=== PATIENT | male | born 1950 | race Two or more races ===

== ENCOUNTER 2024-01-09 09:58 | Emergency (ER) | payer MEDICARE, MEDICAID, SELFPAY ==
[2024-01-09 10:08] VITALS: BP 167/93; PULSE 68; RESP 16; TEMP 36.8; O2SAT 98; BMI 25.5
== END 2024-01-09 13:12 | disposition left against medical advice (07) ==
PROVIDERS: Emergency Provider Emergency Medicine Emergency Medical Services
DX: R51.9 Headache, unspecified (principal); Z91.81 History of falling; Z53.21 Procedure and treatment not carried out due to patient leaving prior to being seen by health care provider
CPT/HCPCS: 99281

== ENCOUNTER 2024-01-13 09:54 | Outpatient (AMB) | payer MEDICARE, MEDICAID, SELFPAY ==
[2024-01-13 10:11] VITALS: BP 150/90; PULSE 66; O2SAT 97
--- NOTE | 2024-01-13 10:11 | AM.OFFWIN_ITS ---
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 His PMhx significant for HTN and mixed hyperlipidemia. He just moved here from [place] 6 months ago and he is waiting to establish care with new PCP next year. [facility] Medical History (Updated 01/13/24 @ 10:20 by Marleni De Jesus NP) Hyperlipidemia Hypertension Review of Systems Const All systems reviewed & are unremarkable except as noted in HPI and below Physical Exam Vital Signs: Last Vital Signs Pulse 66 01/13/24 10:11 BP 150/90 H 01/13/24 10:11 Pulse Ox 97 01/13/24 10:11 Const General: cooperative and no acute distress Nutritional Appearance: thin Orientation/consciousness: patient oriented x3 Resp Effort & Inspection: normal respiratory effort Auscultation: clear to auscultation bilaterally, no crackles, no rales, no rhonchi and no wheezes Cardio Heart sounds: S1 normal heart sound present and S2 normal heart sound present Neuro General: patient oriented x3, gait normal and moves all extremities Assessment & Plan Assessment & Plan (1) Hypertension: Code(s): I10 - Essential (primary) hypertension Qualifiers: Hypertension type: primary hypertension Qualified Code(s): I10 - Essential (primary) hypertension Plan: Refilled his medications for 3 months. (2) Hyperlipidemia: Code(s): E78.5 - Hyperlipidemia, unspecified Qualifiers: Hyperlipidemia type: mixed hyperlipidemia Qualified Code(s): E78.2 - Mixed hyperlipidemia Plan: Refilled his medications for 3 months. Medications: New amlodipine 5 mg PO DAILY 90 tabs 0RF I10 - Essential (primary) hypertension lisinopril 40 mg PO DAILY 90 tabs 0RF I10 - Essential (primary) hypertension metoprolol succinate ER 100 mg PO BID 90 tabs 0RF I10 - Essential (primary) hypertension simvastatin 20 mg PO DAILY 90 tabs 0RF E78.2 - Mixed hyperlipidemia hydrochlorothiazide 25 mg PO DAILY 90 tabs 0RF I10 - Essential (primary) hyp ertension Coding Level of Care Code New Pt Level 3 (05671) Diagnoses Primary hypertension I10 Hypertension type: primary hypertension Mixed hyperlipidemia E78.2 Hyperlipidemia type: mixed hyperlipidemia Time Spent (min) 15
== END 2024-01-13 10:46 | disposition home or self-care (01) ==
PROVIDERS: Visit Provider Nurse Practitioner Family
DX: I10 Essential (primary) hypertension (principal); E78.2 Mixed hyperlipidemia

== ENCOUNTER → 2024-01-13 09:54 | Outpatient (BNVA) | payer MEDICARE, MEDICAID, SELFPAY | DX: I10 Essential (primary) hypertension (principal); E78.2 Mixed hyperlipidemia | CPT/HCPCS: 99202 ==

== ENCOUNTER 2024-03-26 07:56 | Outpatient (AMB) | payer OTHER, SELFPAY ==
--- NOTE | 2024-03-26 08:06 | MHC.PC.OV ---
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 Accompanied by: Self / Same As Patient Allergies No Known Allergies Allergy (Mild, Verified 03/26/24 08:24) N/A Medication List - Last Reconciled 03/26/24 by Tonie Ivey PA-C amlodipine 5 mg PO DAILY hydrochlorothiazide 25 mg PO DAILY lisinopril 40 mg PO DAILY metoprolol succinate ER 100 mg PO BID simvastatin 20 mg PO DAILY Tobacco use date assessed: 03/26/24 Fall risk assessment: No Falls in past year Last assessed Fall Risk: 03/26/24 Dental Screening Dental Screen Date: 03/26/24 Did you have a dental visit in the last 12 months?: Yes Did you have a dental problem in the last 6 months where you did not have access to dental care?: No Was dental information given to patient?: Patient has dentist HPI new patient HPI Details 74-year-old male with past medical history of hypertension hyperlipidemia coming to the office for the 1st time.? In review of the notes, patient was seen in walk-in clinic 12/2023 4 medication refills. Patient tells us today he was last seen by PCP in [place] over 8 months ago. Previously he has been seen in [facility] and [facility]. In he had a colonoscopy done about [address] Fuentes and is due for colonoscopy. He has difficulty sleeping on wake up 3-4 times per night to both go to the bathroom and simply waking up. He has never had a sleep study completed. Blood pressure at home has been elevated and he does routinely take his blood pressure. He denies any symptoms at this time. [facility] Medical History (Updated 03/26/24 @ 08:50 by Tonie Ivey PA-C) Hyperlipidemia Hypertension Surgical History (Updated 03/26/24 @ 08:39 by Tonie Ivey PA-C) History of coronary artery stent placement History of stent insertion of renal artery History of knee surgery Social History Housing: House Patient Tobacco Use Status: Current everyday Tobacco user Tobacco use type: Cigarette Cigarette Packs Per Day: 1 e-Cigarette/Vaping Use: Never Used Second Hand Smoke Exposure: No service: No Current occupational status: unemployed Cognitive needs: Yes Hearing needs: No Vision needs: No Questionnaire PHQ-9 Over the last 2 weeks, how often have you been bothered by any of the following problems? 1. Little interest or pleasure in doing things: not at all 2. Feeling down, depressed, or hopeless: not at all 3. Trouble falling or staying asleep, or sleeping too much: not at all 4. Feeling tired or having little energy: not at all 5. Poor appetite or overeating: not at all 6. Feeling bad about yourself - or that you are a failure or have let yourself or your family down: not at all 7. Trouble concentrating on things, such as reading the newspaper or watching television: not at all 8. Moving or speaking so slowly that other people could have noticed. Or the opposite - being so fidgety or restless that you have been moving around a lot more than usual: not at all 9. Thoughts that you would be better off or of hurting yourself in some way: not at all Total score: 0 Depression Screening Interpretation: Negative Depression Screening Done: Yes Source: Developed by Drs. Des Crockett, Ninoska King, Bola River and colleagues, with an educational alice from [employer]. Thrive Questionnaire Date Thrive assessed: 03/26/24 I am a: Patient What is your living situation today?: I have a steady place to live Within the past 12 months, did the food you bought not last and you didn't have the money to get more?: Never true Within the past 12 months, did you worry whether your food would run out before you got money to buy more?: Never true Do you have trouble paying for medicines?: No Do you have trouble getting transportation to medical appointments?: No Do you have trouble paying your heating and electricity bill?: No Do you have trouble taking care of your child, family member or friend?: No Do you have trouble with day-to-day activities such as bathing, preparing meals, shopping, managing finances, etc.?: No Are you currently unemployed and looking for a job?: No Are you interested in more education?: No Please select the resources that you would like help with: None Currently or been in a relationship where the following occur: No concerns reported THRIVE Score: 0 AUDIT C Alcohol Use Questionnaire (AUDIT-C) 1. How often do you have a drink containing alcohol?: Never Total Score: 0 MORAIMA-7 AMB Questionnaire MORAIMA-7 Date MORAIMA - 7 assessed: 03/26/24 Feeling nervous, anxious, or on edge: 0 = Not at all Not being able to stop or control worryin = Not at all Worrying too much about different things: 0 = Not at all Trouble relaxin = Not at all Being so restless that it is hard to sit still: 0 = Not at all Becoming easily annoyed or irritable: 0 = Not at all Feeling afraid as if something awful might happen: 0 = Not at all Total MORAIMA-7 score (0-4 normal; 5-9 mild; 10-14 moderate; 15-21 severe): 0 Source: Developed by Drs. Des Crockett, Ninoska King, Bola River and colleagues, with an educational alice from [employer]. Review of Systems Const Denies body aches, Denies chills, Denies fever(s), Denies headache(s) and Denies poor appetite Eyes Reports no additional complaints ENT Denies dysphagia, Denies dizziness, Denies headache(s) and Denies odynophagia Card Denies chest pain, Denies syncope, Denies edema, Denies irregular heart rhythm, Denies lightheadedness and Denies dyspnea Resp Denies cough and Denies dyspnea GI Denies abdominal pain, Denies constipation, Denies dysphagia, Denies diarrhea, Denies nausea, Denies odynophagia and Denies vomiting Reports no additional complaints Musc Reports no additional complaints, Denies abnormal gait and Reports back pain Skin/Breast Reports system reviewed and no additional complaints, except as documented Neuro Denies abnormal gait, Denies dizziness, Denies syncope and Denies headache(s) Psych Reports no additional complaints Physical exam (Primary Care) Vital Signs: Last Vital Signs Pulse 63 03/26/24 08:09 BP 170/100 H 03/26/24 08:09 Pulse Ox 98 03/26/24 08:09 Oxygen Delivery Method Room Air 03/26/24 08:09 BMI result Body Mass Index 26.3 Tobacco/Smoking Status: Tobacco use Status Tobacco use date assessed 03/26/24 03/26/24 08:15 Patient Tobacco Use Status Current everyday Tobacco 03/26/24 08:15 Tobacco use type Cigarette 03/26/24 08:15 e-Cigarette/Vaping Use Never Used 03/26/24 08:15 Are you ready to quit: No Tobacco cessation counseling provided: Yes Items discussed: Nicotine replacement Relapse Prevention: discussed dietary, exercise and/or lifestyle changes CPT code: Less than 3 minutes PHQ-9: PHQ-9 Score PHQ-9: Total score 0 03/26/24 08:27 Depression Screening Interpretation: Negative Thrive Assessment: Date of Thrive Assessment Date Thrive assessed 03/26/24 03/26/24 08:09 Currently or been in a relationship where the following occur: No concerns reported Const General: cooperative, healthy appearing, comfortable and no acute distress Orientation/consciousness: patient oriented x3 HENMT Head: Yes normocephalic Ears: hearing grossly normal bilaterally General nose exam: Normal external nose present Eyes General: appearance normal, both eyes and all related structures Conjunctivae: conjunctivae normal Neck Neck: Yes full ROM and Yes no lymphadenopathy Resp Effort & Inspection: normal respiratory effort Auscultation: clear to auscultation bilaterally, no crackles, no rales, no rhonchi and no wheezes Cardio Rate: regular rate Rhythm: regular rhythm Skin General skin exam: no rashes or lesions noted Neuro General: patient oriented x3 Gait exam (Neuro): Normal gait present Extrem General: Yes normal to inspection, Yes full ROM and No edema Psych Affect: normal affect Attitude: cooperative Insight: Good insight present (Psych) Judgement: Good judgement present (Psych) Coding Level of Care Code New Pt Level 4 (78584) Diagnoses Mixed hyperlipidemia E78.2 Hyperlipidemia type: mixed hyperlipidemia Tobacco abuse Z72.0 Degenerative disc disease, lumbar M51.369 Decreased vision H54.7 Hypersomnolence G47.10 Coronary artery disease I25.10 Uncontrolled hypertension I10 Assessment & Plan Assessment & Plan (1) Hyperlipidemia: Code(s): E78.5 - Hyperlipidemia, unspecified Category: Medical Qualifiers: Hyperlipidemia type: mixed hyperlipidemia Qualified Code(s): E78.2 - Mixed hyperlipidemia Plan: Avoid foods that are high in cholesterol such as red meat, fried foods, eggs and baked goods. Triglyceride goal of less than 150 and LDL goal of less than 70. Continue on simvastatin (2) Tobacco abuse: Code(s): Z72.0 - Tobacco use Category: Medical Plan: Smoking cigarettes and the use of tobacco can be harmful. We discussed the importance of stopping and options to aid in smoking cessation. Patient having about a reported 60 pack-year history. Strongly recommending the lung cancer screening program which was declined today. Discussed with patient the risks and benefits of this procedure and patient continues to decline. (3) Degenerative disc disease, lumbar: Code(s): M51.369 - Other intervertebral disc degeneration, lumbar region without mention of lumbar back pain or lower extremity pain Category: Medical Plan: Patient states he has a history of degenerative disc disease in the lumbar spine diagnosed with arthritis. Continues to have low back pain and would further evaluation. Lumbar spine x-ray ordered. (4) Decreased vision: Code(s): H54.7 - Unspecified visual loss Category: Medical Plan: Patient complaining of worsening vision would like evaluation from an eye doctor. Referral placed to optometry. (5) Hypersomnolence: Code(s): G47.10 - Hypersomnia, unspecified Category: Medical Plan: Patient complaining of excessive tiredness due to lack of sleep. Ordered for home sleep study for further evaluation (6) Coronary artery disease: Code(s): I25.10 - Atherosclerotic heart disease of [place] coronary artery without angina pectoris Category: Medical Plan: Advised good control of blood pressures, blood sugar and cholesterol. Ordered for updated blood work we will continue to work on the blood pressure management (7) Uncontrolled hypertension: Code(s): I10 - Essential (primary) hypertension Category: Medical Plan: Blood pressure elevated today 170/100 despite being on 4 blood pressure medications. Continue on current blood pressure medication. Avoid salt intake and encourage healthy diet and regular exercise. Blood pressure currently elevated on amlodipine 5 mg, hydrochlorothiazide 25 mg, lisinopril 40 mg, metoprolol 100 mg b.i.d. we will plan to increase amlodipine to 10 mg at this time and follow up in 6 weeks. Also scheduled for the patient to have a 2 week follow up with the nurse navigators for blood pressure education. Ordered for renal Doppler ultrasound for further evaluation of the kidneys and can consider referral to Nephrology Plan This note was constructed using voice recognition software. While every effort has been made to ensure accuracy and advanced analytics associate, still areas may have been included sometimes these areas may affect the content or meeting of the given symptoms. Total time spent caring for the patient today was 30 minutes. This includes time spent before the visit reviewing the chart, time spent during the visit, and time spent after the visit and documentation. Orders: Orders Comprehensive Met. Panel Today Z00.00 - Encounter for general adult medical examination without abnormal findings Complete Blood Count Auto Diff Today Z00.00 - Encounter for general adult medical examination without abnormal findings Hemoglobin A1c Today Z13.1 - Encounter for screening for diabetes mellitus Vitamin D 25-OH Total Today Z00.00 - Encounter for general adult medical examination without abnormal findings XR lumbar spine 2-3V Today M51.369 - Other intervertebral disc degeneration, lumbar region without mention of lumbar back pain or lower extremity pain Lipid Panel Today E78.00 - Pure hypercholesterolemia, unspecified Vitamin B12 and Folate Today Z00.00 - Encounter for general adult medical examination without abnormal findings PSA, Ultra Sensitive Today Z00.00 - Encounter for general adult medical examination without abnormal findings TSH reflex Free T4 Today Z00.00 - Encounter for general adult medical examination without abnormal findings UA CC w/rflx Micro + Cult Today R35.89 - Other polyuria RT home sleep study Today G47.10 - Hypersomnia, unspecified CA echo transthoracic complete Today I25.10 - Atherosclerotic heart disease of [place] coronary artery without angina pectoris US renal BI Today I10 - Essential (primary) hypertension B Type Natriuretic Peptide Today I10 - Essential (primary) hypertension, I25.10 - Atherosclerotic heart disease of [place] coronary artery without angina pectoris US renal doppler Today I10 - Essential (primary) hypertension Referrals Optometry Referral H54.7 - Unspecified visual loss Gastroenterology Referral Z12.11 - Encounter for screening for malignant neoplasm of colon Cardiology Referral I25.10 - Atherosclerotic heart disease of [place] coronary artery without angina pectoris Medications: New amlodipine 10 mg PO DAILY 90 tabs 0RF Refilled hydrochlorothiazide 25 mg PO DAILY 90 tabs 0RF I10 - Essential (primary) hypertension lisinopril 40 mg PO DAILY 90 tabs 0RF I10 - Essential (primary) hypertension metoprolol succinate ER 100 mg PO BID 90 tabs 0RF I10 - Essential (primary) hypertension simvastatin 20 mg PO DAILY 90 tabs 0RF E78.2 - Mixed hyperlipidemia Discontinued amlodipine Discontinued Reason: Patient no longer taking 5 mg PO DAILY 90 tabs 0RF I10 - Essential (primary) hypertension
[2024-03-26 08:09] VITALS: BP 170/100; PULSE 63; O2SAT 98; BMI 26.3
== END 2024-03-26 08:46 | disposition home or self-care (01) ==
DX: E78.2 Mixed hyperlipidemia (principal); Z72.0 Tobacco use; M51.369 Other intervertebral disc degeneration, lumbar region without mention of lumbar back pain or lower extremity pain; H54.7 Unspecified visual loss; G47.10 Hypersomnia, unspecified; I25.10 Atherosclerotic heart disease of native coronary artery without angina pectoris; I10 Essential (primary) hypertension

== ENCOUNTER → 2024-04-04 08:39 | Outpatient (REF) | payer OTHER, SELFPAY ==
--- NOTE | 2024-04-04 08:42 | CA_ITS ---
Transthoracic Echocardiogram Patient (Last, First, Middle): Wellington Venegas A Gender: Male Date of : 1950 Age: 74 Procedure Date: 04/04/2024 Procedure Type: Transthoracic Echocardiogram Location: OP Height: 172.72 cm Weight: 78.47 kg BSA: 1.92 m2 Heart Rate: 56 bpm BP: 168 / 98 mmHg [employer]: SB Referring MD: oTnie Ivey PA-C Order Dispatcher Chief: Rupert Christy MD Symptoms: I25.10 - Atherosclerotic heart disease of [place] coronary artery without... Study Quality: Adequate ECG Rhythm: Bradycardia Conclusions: - 1. Normal LV ejection fraction of 55-60% 2. Mild calcific aortic and mitral valve changes noted with cardiac valvular Dopplers within normal limits 3. Mildly dilated ascending aorta at 4 cm 4. Normal RV systolic pressure 5. No pericardial effusion Findings Left Ventricle Normal left ventricular size, thickness, and systolic function. The visually estimated ejection fraction is between 55-60%. Spectral Doppler is indicative of an impaired relaxation filling pattern. There is mild septal asymmetric hypertrophy. Wall Motion Rest Echo Findings The inferoseptal wall and basal inferior segment are hypokinetic. All other scored wall segments showed normal motion. Right Ventricle Normal right ventricular cavity size and systolic function. Atria The left atrium is likely dilated. There is no evidence of interatrial shunt. The right atrium is normal in size. Aortic Valve Normal aortic valve structure and function. There is mild calcification of the aortic valve. There is no aortic valve stenosis. There is no aortic valve regurgitation. Mitral Valve There is mild anterior and posterior mitral leaflet thickening. There is mild mitral annular calcification. There is trace mitral valve regurgitation. There is no mitral valve stenosis. Pulmonic Valve The pulmonic valve was not well visualized. Tricuspid Valve Likely normal tricuspid valve structure and function. There is mild tricuspid valve regurgitation. The right ventricular systolic pressure is normal. The right ventricular systolic pressure is 29 mmHg. Normal right atrial pressure. There is no evidence of pulmonary hypertension. Great Vessels The pulmonary artery was not well visualized. There is mild dilatation of the ascending aorta measuring 4.00 cm. Small plaque is seen in the sino tubular ridge. Venous The inferior vena cava is normal in size and collapses greater than 50% with inspiration. Pericardium/Pleural There is no evidence of pericardial effusion. Prior Study Comparison no previous study in the last 5 years for comparison Measurements 2D Linear Measurements IVSd: 1.50 0.6-0.9/0.6-1.0 cm LVIDd: 5.01 3.9-5.3/4.2-5.9 cm LVIDd Index: 2.61 2.4-3.2/2.2-3.1 cm/m2 LVIDs: 4.01 2.0-3.6 cm LVPWd: 0.85 0.7-1.1 cm LA Diam: 4.20 2.7-3.8/3.0-4.0 cm LAIDs Index: 2.19 1.5-2.3 cm/m2 LV Mass: 283.52 67-162/88-224 g LV Mass Index: 147.66 43-95/49-115 g/m2 LVOT Diam: 2.20 3.0+(-)1.3 cm Mitral Valve MV Pk E: 0.82 MV PK A: 0.99 MV Decel Time: 284.00 E/A: 0.80 E'Lateral: 7.40 E'Medial: 4.13 E/E' Med: 19.80 E/E' Lat: 11.10 PHT: 83.00 MVA PHT: 2.65 Decel [place]: 2.89 Aortic Valve AoV Pk [place]: 1.58 AoV Mn Ferm[place]: 1.04 AoV VTI: 0.35 AoV Pk Grad: 10.00 Aov Mn Grad: 5.00 ANABEL Cont.VTI: 2.16 LVOT LVOT Pk [place]: 0.95 LVOT Mn Ferm[place]: 0.59 LVOT VTI: 0.20 LVOT Pk Grad: 4.00 LVOT Mn Grad: 2.00 LVOT Diam: 2.20 LVOT Area: 3.80 Diastolic Function MV Pk E: 0.82 MV Pk A: 0.99 E/A: 0.80 E'Medial: 4.13 E/E' Med: 19.80 E' Laterial: 7.40 E/E' Lat: 11.10 Right Ventricle TAPSE (mm): 27.40 TVS' [place]: 13.10 Tricuspid Valve TR Pk Fermin: 2.57 TR Pk Grad: 26.00 RA Press: 3.00 RVSP: 29.00 Great Vessels Aorta Sinus of Valsalva: 3.50 2.0-3.5 cm Ao Asc: 4.00 2.1-3.4 cm Pulmonary Valve PV Pk Fermin: 0.82 Peak PV Grad: 3.00 Updated in Other Vendor System with Status of Final Rupert Christy MD electronically signed on 04/04/2024 5:27:11 PM with status of Final
== END ==
LOC: HO.CARD 08:39
DX: I25.10 Atherosclerotic heart disease of native coronary artery without angina pectoris (principal)
CPT/HCPCS: 93306

== ENCOUNTER → 2024-04-04 08:42 | Outpatient (BNV) | payer OTHER, SELFPAY | PROVIDERS: Visit Provider Internal Medicine Cardiovascular Disease | DX: I42.2 Other hypertrophic cardiomyopathy (principal); I36.1 Nonrheumatic tricuspid (valve) insufficiency; I35.8 Other nonrheumatic aortic valve disorders; I34.81 Nonrheumatic mitral (valve) annulus calcification | CPT/HCPCS: 93306 ==

== ENCOUNTER 2024-04-24 07:43 | Outpatient (REF) | payer OTHER, SELFPAY ==
--- NOTE | ~2024-04-24 | US_ITS ---
CLINICAL HISTORY: I10 - Essential (primary) hypertension US Renal with Doppler Comparison: None Findings: Right kidney normal size and echotexture, 11.4 cm length. No hydronephrosis. Normal color Doppler. Resistive index 0.64-0.71. There is a 6.7 x 5.2 x 5.5 cm simple appearing cyst arising from the upper pole of the right kidney. Left kidney normal size and echotexture, 11.6 cm length. No hydronephrosis. Normal color Doppler. Resistive index 0.62-0.68. There are multiple left kidney cysts measuring up to 1.9 x 2.1 x 1.9 cm. Right-sided renal artery velocities measure 150, 92 and 116 centimeters/second respectively within the proximal, mid and distal aspects. The right renal artery/aortic velocity ratio is 2.42. Left-sided renal artery velocities measure 158, 118 and 105 centimeters/second respectively within the proximal, mid and distal aspects. Left renal artery/aortic velocity ratio is 2.55. The bilateral renal veins are patent. There is a 4.0 x 3.9 cm aneurysm of the distal abdominal aorta. IMPRESSION: 1. No significant renal artery stenosis. 2. 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 This document has been electronically signed by: Rosario Yanez MD on 04/24/2024 16:26:55
--- NOTE | ~2024-04-24 | XR_ITS ---
EXAMINATION: XR LUMBOSACRAL SPINE CLINICAL INFORMATION: M51.369 - Other intervertebral disc degeneration, lumbar region without ... COMPARISON: None available. TECHNIQUE: Three views of the lumbosacral spine. FINDINGS: There is normal lumbar lordosis. The vertebral heights and alignment is normal. There is moderate bridging osteophytes throughout lumbar spine. No acute fracture, lytic or sclerotic process seen. SI joints are symmetrical and normal. The soft tissues are normal. XR/XR lumbar spine 2-3V IMPRESSION: Moderate spondylosis throughout lumbar spine. No visible acute fracture, dislocation or lytic process seen.. Electronically signed by: Juanito Christopher MD 04/24/2024 12:19 PM EST
== END 2024-04-24 07:44 | disposition home or self-care (01) ==
LOC: HO.US 07:43
DX: M51.369 Other intervertebral disc degeneration, lumbar region without mention of lumbar back pain or lower extremity pain (principal); I10 Essential (primary) hypertension
CPT/HCPCS: 72100; 76775; 93975

== ENCOUNTER → 2024-04-24 07:45 | Outpatient (BNV) | payer OTHER, SELFPAY | PROVIDERS: Visit Provider Radiology Diagnostic Radiology | DX: I71.40 Abdominal aortic aneurysm, without rupture, unspecified (principal) | CPT/HCPCS: 93975 ==

== ENCOUNTER 2024-04-25 07:20 | Outpatient (REF) | payer OTHER, SELFPAY ==
[2024-04-25 07:34] LABS: MANUAL DIFF FLAG NO
[2024-04-25 08:00] LABS: Appearance Urine Clear; Color Urine Yellow; Glucose Urine UA Negative (Negative); Leukocyte Esterase Urine Trace (Negative); Nitrite Urine Negative (Negative); Specific Gravity - Urine 1.015 (1.005-1.025); UMIC TRIGGER UACC YES; Urine Blood Trace (Negative); Urine Ketones Negative (Negative); Urine Protein Trace mg/dL (Neg-Trace)
[2024-04-25 08:01] LABS: Basophils Percent Auto 0.3 % (0-2); Eosinophils Absolute Auto 0.1 X10*3/uL (0.0-0.4); Eosinophils Percent Auto 1.3 % (0-4); Hematocrit 41.5 % (42.0-52.0); Hemoglobin 14.7 g/dl (14.0-18.0); Imm Gran Abs Auto 0.03 X10*3/uL (0.00-0.03); Imm Gran Pct Auto 0.3 % (0.0-0.4); Lymphocytes Percent Auto 21.7 % (20-40); Mean Corpuscular HGB Conc 35.4 g/dl (31.0-36.0); Mean Corpuscular Hemoglobin 33.6 pg (27.0-33.0); Mean Platelet Volume 9.8 fL (9.4-12.4); Monocytes Absolute Auto 0.7 X10*3/uL (0.1-1.2); Monocytes Percent Auto 7.8 % (2-11); Neutrophils Absolute Auto 6.2 x10*3/uL (2.0-8.3); Neutrophils Percent Auto 68.6 % (45-73); Platelet Count 230 X10*3/uL (160-400); Red Blood Count 4.37 X10*6/uL (4.60-5.80); Red Cell Distribution Width 12.7 % (11.0-16.0); White Blood Count 9.1 X10*3/uL (4.8-10.8)
[2024-04-25 08:05] LABS: Bacteria Urine None Seen (None Seen); Hyaline Casts Urine 0-2 /LPF (0-2); Squamous Epithelial Cell Urine 0-2 /HPF (0-2); WBC Urine 0-5 /HPF (0-5)
[2024-04-25 08:11] LABS: Estimated Average Glucose 114 mg/dL; Hemoglobin A1c % 5.6 % (<6.0); Total Hemoglobin (HGBA1C) 3751.9476 umol/L
[2024-04-25 08:15] LABS: B Type Natriuretic Peptide 67 pg/mL (<100)
[2024-04-25 08:20] LABS: Alanine Aminotransferase 30 U/L (0-40); Albumin Level 4.2 g/dL (3.5-5.0); Alkaline Phosphatase 69 U/L (39-117); Anion Gap 9 (12-20); Aspartate Amino Transferase 37 U/L (5-37); Bilirubin Total 0.4 mg/dL (0.0-1.0); Blood Urea Nitrogen 17 mg/dL (9-16); Calcium 9.7 mg/dL (8.4-10.2); Carbon Dioxide 29 mmol/L (22-29); Chloride 107 mmol/L (96-108); Cholesterol 162 mg/dL (<200); Estimated Glomerular Filt Rate > 60; Glucose Random 97 mg/dL (60-115); HDL Cholesterol 47 mg/dL (>40); LDL Cholesterol Calculated 97 mg/dL (<100); Potassium 3.4 mmol/L (3.3-5.1); Sodium 142 mmol/L (135-145); Total Protein 7.6 g/dL (6.5-8.0); Triglycerides 90 mg/dL (<150)
[2024-04-25 08:43] LABS: TSH reflex Free T4 0.82 uIU/mL (0.32-4.0); Vitamin D 25-OH Total 58.5 ng/mL (>30)
[2024-04-25 08:49] LABS: Folate 12.7 ng/mL (> or = 4.0); Vitamin B12 415 pg/mL (200-900)
[2024-04-29 16:58] LABS: PSA, Ultra Sensitive 0.99 ng/mL
== END 2024-04-25 07:21 | disposition home or self-care (01) ==
LOC: HO.LAB 07:20
DX: Z00.00 Encounter for general adult medical examination without abnormal findings (principal); I10 Essential (primary) hypertension; Z13.1 Encounter for screening for diabetes mellitus; I25.10 Atherosclerotic heart disease of native coronary artery without angina pectoris; E78.00 Pure hypercholesterolemia, unspecified; Z12.5 Encounter for screening for malignant neoplasm of prostate
CPT/HCPCS: 36415; 80053; 80061; 81001; 81003; 82306; 82607; 82746; 83036; 83880; 84153; 84443; 85025

== ENCOUNTER 2024-05-03 14:52 | Outpatient (AMB) | payer OTHER, SELFPAY ==
--- NOTE | 2024-05-03 14:54 | HO.NEPHOV ---
Vital Signs 05/03/24 14:55 Height 5 ft 8 in Weight 178 lb 8 oz BMI 27.1 BP 148/100 H Blood Pressure Location Lt brachial Position Sitting Pulse 59 Pulse Source Pulse Oximeter Pulse Oximetry (%) 99 Oxygen Delivery Method Room Air Intake Visit Reasons: INP: Hypertension-LVM Policy Services Representative Required: No Accompanied by: Self / Same As Patient Allergies No Known Allergies Allergy (Mild, Verified 05/03/24 14:55) N/A HPI Comments Details: Thank you for referring Wellington for evaluation of hypertension. He is 74 years of age who has a smoker and has history of coronary artery disease needing PCI and stenting. He denied any history of carotid stenosis, CVA, CHF, PAD or known ELIZABETH. He does not have any history of hypokalemia, hypercalcemia, uncontrolled thyroid disorders, sleep apnea. He does not keep up with a low-sodium diet. He has no pedal edema, proteinuria or renal dysfunction. He denies any chest pain, palpitation, paroxysmal nocturnal dyspnea, orthopnea, orthostatic symptoms. He claims to be compliant with his medications. His blood pressure has been labile and his amlodipine dosage has been increased recently to 10 mg in addition to his other medications. Doppler of the renal arteries incidentally showed 4 cm abdominal aortic aneurysm. [facility] Medical History (Updated 05/03/24 @ 21:19 by Jens Rae MD) Hyperlipidemia Hypertension Surgical History History of coronary artery stent placement History of stent insertion of renal artery History of knee surgery Social History Housing: House Patient Tobacco Use Status: Current everyday Tobacco user Tobacco use type: Cigarette Cigarette Packs Per Day: 1 e-Cigarette/Vaping Use: Never Used Second Hand Smoke Exposure: No service: No Current occupational status: unemployed Cognitive needs: Yes Hearing needs: No Vision needs: No Review of Systems Const All systems reviewed & are unremarkable except as noted in HPI and below Physical Exam Vital Signs: Last Vital Signs Pulse 59 05/03/24 14:55 BP 148/100 H 05/03/24 14:55 Pulse Ox 99 05/03/24 14:55 Oxygen Delivery Method Room Air 05/03/24 14:55 BMI result Body Mass Index 27.1 Const General: comfortable and no acute distress Orientation/consciousness: patient oriented x3 HEENT Head: Yes normocephalic Mouth: Normal oral and palatal mucosa present Eyes EOM: EOMs intact bilaterally Neck Neck: Yes supple Resp Auscultation: clear to auscultation bilaterally Cardio Jugular venous distension: no JVD Rate: regular rate GI Palpation (GI): Soft to palpation Auscultation: normal bowel sounds General: Yes no CVA tenderness Back/Spine/Pelvis Back: no CVA tenderness Skin General skin exam: no rashes or lesions noted Neuro General: patient oriented x3 and moves all extremities Extrem General: Yes no pedal edema Results Reviewed Nephrology Results: Hgb 14.7 g/dl (14.0-18.0) 04/25/24 WBC 9.1 X10*3/uL (4.8-10.8) 04/25/24 Plt Count 230 X10*3/uL (160-400) 04/25/24 Sodium 142 mmol/L (135-145) 04/25/24 Potassium 3.4 mmol/L (3.3-5.1) 04/25/24 Chloride 107 mmol/L (96-108) 04/25/24 Carbon Dioxide 29 mmol/L (22-29) 04/25/24 BUN 17 mg/dL (9-16) H 04/25/24 Creatinine 0.92 mg/dL (0.5-1.4) 04/25/24 Calcium 9.7 mg/dL (8.4-10.2) 04/25/24 Urine Protein Trace mg/dL (Neg-Trace) 04/25/24 Renal US 04/24/24 Assessment & Plan Assessment & Plan (1) Abdominal aortic aneurysm: Code(s): I71.40 - Abdominal aortic aneurysm, without rupture, unspecified Category: Medical Qualifiers: Abdominal aorta location: unspecified Presence of rupture: without rupture Qualified Code(s): I71.40 - Abdominal aortic aneurysm, without rupture, unspecified (2) Hypertension: Code(s): I10 - Essential (primary) hypertension Category: Medical Qualifiers: Hypertension type: primary hypertension Qualified Code(s): I10 - Essential (primary) hypertension Plan Wellington has longstanding hypertension as well as vascular disease. He has history of coronary artery disease. He currently has aortic aneurysm. He should be on a low-sodium diet. I discontinued his amlodipine and initiated him on nifedipine 30 mg daily. He can continue his current dose of metoprolol, lisinopril as well as hydrochlorothiazide. He should be on a low-sodium diet. He should avoid nonsteroidal anti-inflammatories and maintain good hydration. I shall consider doing a 24 hour ambulatory blood pressure monitor along with the aldosterone and renin levels, if his blood pressure continues to be labile in spite of adjusting medications. He should quit smoking. I referred him to vascular surgery. Further management is pending evolving data. Answered all questions. Orders: Referrals Vascular Surgery Referral I71.40 - Abdominal aortic aneurysm, without rupture, unspecified Medications: New nifedipine ER 30 mg PO DAILY 30 tabs 4RF Discontinued amlodipine Discontinued Reason: Doctor's Order 10 mg PO DAILY 90 tabs 0RF Coding Level of Care Code New Pt Level 4 (21945) Diagnoses Abdominal aortic aneurysm (AAA) without rupture, unspecified part I71.40 Abdominal aorta location: unspecified Presence of rupture: without rupture Primary hypertension I10 Hypertension type: primary hypertension
[2024-05-03 14:55] VITALS: BP 148/100; PULSE 59; O2SAT 99; BMI 27.1
== END 2024-05-03 15:16 | disposition home or self-care (01) ==
LOC: HO.HKAS 14:53
PROVIDERS: Visit Provider Internal Medicine Nephrology
DX: I71.40 Abdominal aortic aneurysm, without rupture, unspecified (principal); I10 Essential (primary) hypertension
CPT/HCPCS: 99204

== ENCOUNTER → 2024-05-03 14:52 | Outpatient (BNVA) | payer OTHER, SELFPAY | PROVIDERS: Visit Provider Internal Medicine Nephrology | DX: I10 Essential (primary) hypertension (principal); I71.40 Abdominal aortic aneurysm, without rupture, unspecified; I25.10 Atherosclerotic heart disease of native coronary artery without angina pectoris | CPT/HCPCS: 99202 ==

== ENCOUNTER 2024-05-08 09:20 | Outpatient (AMB) | payer MEDICARE, OTHER, SELFPAY ==
--- NOTE | 2024-05-08 09:23 | MHC.PC.OV ---
Vital Signs 05/08/24 09:24 Height 5 ft 8 in Weight 173 lb 2 oz BMI 26.3 BP 130/66 Blood Pressure Location Lt brachial Position Sitting Pulse 58 Pulse Source Pulse Oximeter Temp 97.3 F Temp Source Temporal Artery Scan Pulse Oximetry (%) 100 Oxygen Delivery Method Room Air Intake Visit Reasons: Follow Up Intake Note: Patient is here to follow up on HTN, HLD. Clutch Specialist Required: No Rod Cup Filler: Not Required per policy Accompanied by: Self / Same As Patient Allergies No Known Allergies Allergy (Mild, Verified 05/08/24 09:29) N/A Medication List - Last Reconciled 05/08/24 by Tonie Ivey PA-C hydrochlorothiazide 25 mg PO DAILY lisinopril 40 mg PO DAILY metoprolol succinate ER 100 mg PO BID nifedipine ER 30 mg PO DAILY Tobacco use date assessed: 05/08/24 Fall risk assessment: 1 Fall in past year Last assessed Fall Risk: 05/08/24 Dental Screening Dental Screen Date: 03/26/24 HPI Follow Up HPI Details 74-year-old male with past medical history of hypertension, hyperlipidemia, tobacco abuse, degenerative disc disease, coronary artery disease, abdominal aortic aneurysm and aortic stenosis last seen 03/2024 coming in for follow up.? In review of the notes, patient was seen by Nephrology 04/2024 amlodipine was discontinued and patient was started on nifedipine 30 mg advised to continue on metoprolol, lisinopril and hydrochlorothiazide.?Advised low-sodium diet and consider 24 hour ambulatory blood pressure monitoring patient was also referred to vascular surgery for aortic aneurysm. Patient tells us today he continues to have chronic back pain is interested in seeing pain management and chiropractor. He is unsure if he discontinued the amlodipine but does state since his medication change he has noticed an improvement in his leg heaviness. He discontinued his simvastatin for unknown reason last month and as a result his current cholesterol labs did not reflect the use of simvastatin. [facility] Medical History Hyperlipidemia Hypertension Surgical History History of coronary artery stent placement History of stent insertion of renal artery History of knee surgery Social History Housing: House Patient Tobacco Use Status: Current everyday Tobacco user Tobacco use type: Cigarette Cigarette Packs Per Day: 1 Cigarettes Per Day: 20 e-Cigarette/Vaping Use: Never Used Second Hand Smoke Exposure: Yes service: No Current occupational status: unemployed Cognitive needs: Yes Hearing needs: No Vision needs: No Questionnaire Thrive Questionnaire Date Thrive assessed: 03/26/24 MORAIMA-7 AMB Questionnaire MORAIMA-7 Date MORAIMA - 7 assessed: 03/26/24 Source: Developed by Drs. Des Crockett, Ninoska King, B[place] River and colleagues, with an educational alice from [employer]. Review of Systems Const Denies body aches, Denies chills, Denies fever(s), Denies headache(s) and Denies poor appetite Eyes Reports no additional complaints ENT Denies dizziness and Denies headache(s) Card Denies chest pain, Denies syncope, Denies lightheadedness and Denies dyspnea Resp Denies cough and Denies dyspnea GI Reports no additional complaints Reports no additional complaints Musc Reports no additional complaints and Denies abnormal gait Skin/Breast Reports system reviewed and no additional complaints, except as documented Neuro Denies abnormal gait, Denies dizziness, Denies syncope and Denies headache(s) Psych Reports no additional complaints Physical exam (Primary Care) Vital Signs: Last Vital Signs Temp 97.3 F 05/08/24 09:24 Pulse 58 05/08/24 09:24 BP 130/66 05/08/24 09:24 Pulse Ox 100 05/08/24 09:24 Oxygen Delivery Method Room Air 05/08/24 09:24 BMI result Body Mass Index 26.3 Tobacco/Smoking Status: Tobacco use Status Tobacco use date assessed 05/08/24 05/08/24 09:28 Patient Tobacco Use Status Current everyday Tobacco 05/08/24 09:28 Tobacco use type Cigarette 05/08/24 09:28 e-Cigarette/Vaping Use Never Used 05/08/24 09:28 Thrive Assessment: Date of Thrive Assessment Date Thrive assessed 03/26/24 05/08/24 09:28 Const General: cooperative, healthy appearing, comfortable and no acute distress Orientation/consciousness: patient oriented x3 HENMT Head: Yes normocephalic Ears: hearing grossly normal bilaterally General nose exam: Normal external nose present Eyes General: appearance normal, both eyes and all related structures Conjunctivae: conjunctivae normal Neck Neck: Yes full ROM and Yes no lymphadenopathy Resp Effort & Inspection: normal respiratory effort Auscultation: clear to auscultation bilaterally, no crackles, no rales, no rhonchi and no wheezes Cardio Rate: regular rate Rhythm: regular rhythm Skin General skin exam: no rashes or lesions noted Neuro General: patient oriented x3 Gait exam (Neuro): Normal gait present Extrem General: Yes normal to inspection, Yes full ROM and No edema Psych Affect: normal affect Attitude: cooperative Insight: Good insight present (Psych) Judgement: Good judgement present (Psych) Coding Level of Care Code Est Pt Level 3 (68627) Diagnoses Abdominal aortic aneurysm (AAA) without rupture, unspecified part I71.40 Abdominal aorta location: unspecified Presence of rupture: without rupture Aortic stenosis I35.0 Uncontrolled hypertension I10 Coronary artery disease I25.10 Mixed hyperlipidemia E78.2 Hyperlipidemia type: mixed hyperlipidemia Degenerative disc disease, lumbar M51.369 Assessment & Plan Assessment & Plan (1) Abdominal aortic aneurysm: Code(s): I71.40 - Abdominal aortic aneurysm, without rupture, unspecified Category: Medical Qualifiers: Abdominal aorta location: unspecified Presence of rupture: without rupture Qualified Code(s): I71.40 - Abdominal aortic aneurysm, without rupture, unspecified Plan: Referral was placed to vascular surgery by Nephrology. Repeat ultrasound in 6 months (2) Aortic stenosis: Code(s): I35.0 - Nonrheumatic aortic (valve) stenosis Category: Medical Plan: Referral was placed to Cardiology at last visit has not made an appointment at this time. (3) Uncontrolled hypertension: Code(s): I10 - Essential (primary) hypertension Category: Medical Plan: Continue on current blood pressure medication. Avoid salt intake and encourage healthy diet and regular exercise. Continue to follow with Nephrology and continue on metoprolol, nifedipine, lisinopril and hydrochlorothiazide. I did university counselor the patient on the discontinuation of amlodipine advised him to discard these medications (4) Coronary artery disease: Code(s): I25.10 - Atherosclerotic heart disease of [place] coronary artery without angina pectoris Category: Medical Plan: Advised good control of cholesterol, blood pressure and blood sugars. He is not currently on aspirin or antiplatelet therapy. I did advise him to restart his simvastatin as his most recent cholesterol labs were elevated. Follow up with Cardiology (5) Hyperlipidemia: Code(s): E78.5 - Hyperlipidemia, unspecified Category: Medical Qualifiers: Hyperlipidemia type: mixed hyperlipidemia Qualified Code(s): E78.2 - Mixed hyperlipidemia Plan: Avoid foods that are high in cholesterol such as red meat, fried foods, eggs and baked goods. Triglyceride goal of less than on 50 and LDL goal of less than 70. Continue on simvastatin (6) Degenerative disc disease, lumbar: Code(s): M51.369 - Other intervertebral disc degeneration, lumbar region without mention of lumbar back pain or lower extremity pain Category: Medical Plan: Patient having chronic low back pain due to degenerative disc disease referral placed to pain management and chiropractor at this time. Muscle relaxer sent for nighttime pain. Plan This note was constructed using voice recognition software. While every effort has been made to ensure accuracy and food beverage attendant, still areas may have been included sometimes these areas may affect the content or meeting of the given symptoms. Total time spent caring for the patient today was twenty minutes. This includes time spent before the visit reviewing the chart, time spent during the visit, and time spent after the visit and documentation. Orders: Orders Lipid Panel 3 Months E78.00 - Pure hypercholesterolemia, unspecified Referrals Pain Management Referral M51.369 - Other intervertebral disc degeneration, lumbar region without mention of lumbar back pain or lower extremity pain Chiropractic Referral M51.369 - Other intervertebral disc degeneration, lumbar region without mention of lumbar back pain or lower extremity pain Medications: New cyclobenzaprine 5 mg PO BEDTIME 30 tabs 0RF Refilled simvastatin 20 mg PO DAILY 90 tabs 0RF E78.2 - Mixed hyperlipidemia
[2024-05-08 09:24] VITALS: BP 130/66; PULSE 58; TEMP 36.3; O2SAT 100; BMI 26.3
== END 2024-05-08 10:02 | disposition home or self-care (01) ==
LOC: HO.HMCH 09:20
DX: I71.40 Abdominal aortic aneurysm, without rupture, unspecified (principal); I35.0 Nonrheumatic aortic (valve) stenosis; I10 Essential (primary) hypertension; I25.10 Atherosclerotic heart disease of native coronary artery without angina pectoris; E78.2 Mixed hyperlipidemia; M51.369 Other intervertebral disc degeneration, lumbar region without mention of lumbar back pain or lower extremity pain

== ENCOUNTER → 2024-05-08 09:20 | Outpatient (BNVA) | payer OTHER, SELFPAY | DX: I71.40 Abdominal aortic aneurysm, without rupture, unspecified (principal); I35.0 Nonrheumatic aortic (valve) stenosis; I10 Essential (primary) hypertension; I25.10 Atherosclerotic heart disease of native coronary artery without angina pectoris; E78.2 Mixed hyperlipidemia; M51.369 Other intervertebral disc degeneration, lumbar region without mention of lumbar back pain or lower extremity pain | CPT/HCPCS: 99212 ==

== ENCOUNTER → 2024-05-21 14:22 | Outpatient (REF) | payer OTHER, SELFPAY | LOC: HO.SL 14:22 | DX: G47.10 Hypersomnia, unspecified (principal) | CPT/HCPCS: 95806 ==

== ENCOUNTER → 2024-05-21 14:35 | Outpatient (BNV) | payer OTHER, SELFPAY | PROVIDERS: Visit Provider Internal Medicine | DX: G47.33 Obstructive sleep apnea (adult) (pediatric) (principal) | CPT/HCPCS: 95806 ==

== ENCOUNTER 2024-05-22 09:03 | Outpatient (AMB) | payer OTHER, SELFPAY ==
--- NOTE | 2024-05-22 09:06 | MHC.OFFVIS ---
Intake Visit Reasons: [facility]/C Kidney referral for AAA Intake Note: New patient presents for AAA. No complaints. Accompanied by: Daughter Allergies No Known Allergies Allergy (Mild, Verified 05/22/24 09:07) N/A HPI HPI [facility] [place] Kidney referral for AAA: Details: The patient is a 74-year-old male presenting with an abdominal aortic aneurysm discovered incidentally on a renal doppler ultrasound during an evaluation for kidney issues. The aneurysm is approximately 4 cm in diameter and located in the abdomen. There is no previous history of similar concerns or related surgical interventions. The patient has a pronounced history of nicotine dependence, smoking one pack per day, and hypertension, which he manages with medication. He denies any history of diabetes. He now presents for vascular evaluation. [facility] Medical History Hyperlipidemia Hypertension Surgical History History of coronary artery stent placement History of stent insertion of renal artery History of knee surgery Social History Housing: House Patient Tobacco Use Status: Current everyday Tobacco user Tobacco use type: Cigarette Cigarette Packs Per Day: 1 Cigarettes Per Day: 20 e-Cigarette/Vaping Use: Never Used Second Hand Smoke Exposure: Yes service: No Current occupational status: unemployed Cognitive needs: Yes Hearing needs: No Vision needs: No Review of Systems Const All systems reviewed & are unremarkable except as noted in HPI and below Reports no additional complaints ENT Reports Normal hearing present Card Denies chest pain, Denies chest pain at rest, Denies chest pain with activity and Denies pedal edema Resp Denies cough GI Denies abdominal pain Musc Denies abnormal gait, Denies muscle cramps and Denies radiating pain into limb Skin/Breast Denies skin ulcer and Denies wounds Neuro Reports Normal hearing present and Denies abnormal gait Psych Reports no additional complaints Physical Exam Const General: cooperative, healthy appearing and comfortable Orientation/consciousness: oriented to person, oriented to place and oriented to time HEENT Head: Yes normal to inspection Neck Neck: Yes normal visual inspection Carotids: no bruits Chest Chest palpation & inspection: normal inspection of the chest Resp Effort & Inspection: normal respiratory effort and able to speak in complete sentences Auscultation: clear to auscultation bilaterally, no crackles, no rales, no rhonchi and no wheezes Cardio Rate: regular rate Rhythm: regular rhythm Heart sounds: S1 normal heart sound present and S2 normal heart sound present Bruits: no carotid bruits Peripheral pulses: Peripheral pulses 2+ throughout GI Inspection: Yes normal to inspection Skin Wounds: no wounds Hair: normal Neuro General: oriented to person, oriented to place and oriented to time Cranial nerves: Yes CN's II-XII intact bilaterally and Yes Normal hearing present Cognition (Neuro): normal cognition Motor exam (neuro): 5/5 motor strength present throughout Extrem Other: venous exam: No significant superficial varicosities or spider telangiectasias, minimal edema General: No clubbing, No cyanosis and No edema Psych Appearance: grossly normal Mental Status: mental status grossly normal Speech and movement: Normal speech and movement present Results Reviewed Results Reviewed: Ultrasound dated 04/24/2024 demonstrates a 4.0 cm distal aortic aneurysm written report and images were reviewed. Assessment & Plan Assessment & Plan (1) Abdominal aortic aneurysm: Code(s): I71.40 - Abdominal aortic aneurysm, without rupture, unspecified Category: Medical Qualifiers: Abdominal aorta location: unspecified Presence of rupture: without rupture Qualified Code(s): I71.40 - Abdominal aortic aneurysm, without rupture, unspecified Plan: I explained to the patient his condition of a 4 cm abdominal aortic aneurysm discovered incidentally through ultrasound, indicating that current guidelines defer surgical intervention until the aneurysm reaches 5.5 cm. We discussed the plan for a repeat ultrasound in six months, assessing aneurysm stability or changes in size. I provided information regarding managing risk factors, especially smoking cessation and hypertension control, highlighting their roles in mitigating aneurysm growth. I discussed potential future interventions, such as stent placement, should significant enlargement occur. The patient was advised about the absence of medication to reduce the aneurysm size and the need for regular follow-up. The patient did not express any misunderstandings and consented to the planned observation and monitoring strategy. Patient will follow up with us in 6 months with surveillance ultrasound Plan Patient was informed and verbally consented to the use of an ambient scribe for clinic note documentation during this visit. Orders: Orders US abdominal aortic aneurysm 6 Months I71.40 - Abdominal aortic aneurysm, without rupture, unspecified Patient Instructions: - Quit smoking to reduce further health risks. - Continue taking hypertension medications as prescribed. - Monitor any new symptoms and report them. - Schedule and attend a follow-up ultrasound in six months. - Maintain blood pressure control through medication and lifestyle. - Return for assessment if any concerning symptoms develop prior to the scheduled ultrasound. Coding Level of Care Code New Pt Level 4 (71602) Complex EM visit Add On G2211 Diagnoses Abdominal aortic aneurysm (AAA) without rupture, unspecified part I71.40 Abdominal aorta location: unspecified Presence of rupture: without rupture
== END 2024-05-22 09:20 | disposition home or self-care (01) ==
LOC: HO.HVS 09:04
PROVIDERS: Visit Provider Surgery Vascular Surgery
DX: I71.40 Abdominal aortic aneurysm, without rupture, unspecified (principal)
CPT/HCPCS: 99204; G2211

== ENCOUNTER → 2024-05-22 09:03 | Outpatient (BNVA) | payer OTHER, SELFPAY | PROVIDERS: Visit Provider Surgery Vascular Surgery | DX: I71.40 Abdominal aortic aneurysm, without rupture, unspecified (principal) | CPT/HCPCS: 99202 ==

== ENCOUNTER 2024-06-15 10:42 | Outpatient (AMB) | payer OTHER, SELFPAY ==
--- NOTE | 2024-06-15 10:47 | HO.NEPHOV ---
Vital Signs 06/15/24 10:48 Height 5 ft 8 in Weight 177 lb BMI 26.9 BP 140/80 H Blood Pressure Location Lt brachial Position Sitting Pulse 95 Pulse Source Pulse Oximeter Pulse Oximetry (%) 98 Oxygen Delivery Method Room Air Intake Visit Reasons: R/s from 05/30/24-[facility] Treatment Coordinator Required: No Accompanied by: Self / Same As Patient Allergies No Known Allergies Allergy (Mild, Verified 06/15/24 10:52) N/A Do you need a note to return to daycare/school/sports/work: No HPI Comments Details: Wellington was seen for F/U of hypertension. He is 74 years of age who has a smoker and has history of coronary artery disease needing PCI and stenting. He denied any history of carotid stenosis, CVA, CHF, PAD or known ELIZABETH. He does not have any history of hypokalemia, hypercalcemia, uncontrolled thyroid disorders, sleep apnea. He does not keep up with a low-sodium diet. He has no pedal edema, proteinuria or renal dysfunction. He denies any chest pain, palpitation, paroxysmal nocturnal dyspnea, orthopnea, orthostatic symptoms. He claims to be compliant with his medications. His blood pressure has been labile and his amlodipine dosage has been increased recently to 10 mg in addition to his other medications. Doppler of the renal arteries incidentally showed 4 cm abdominal aortic aneurysm. [facility] Medical History Hyperlipidemia Hypertension Surgical History History of coronary artery stent placement History of stent insertion of renal artery History of knee surgery Social History Housing: House Patient Tobacco Use Status: Current everyday Tobacco user Tobacco use type: Cigarette Cigarette Packs Per Day: 1 Cigarettes Per Day: 20 e-Cigarette/Vaping Use: Never Used Second Hand Smoke Exposure: Yes service: No Current occupational status: unemployed Cognitive needs: Yes Hearing needs: No Vision needs: No Review of Systems Const All systems reviewed & are unremarkable except as noted in HPI and below Physical Exam Vital Signs: Last Vital Signs Pulse 95 06/15/24 10:48 BP 140/80 H 06/15/24 10:48 Pulse Ox 98 06/15/24 10:48 Oxygen Delivery Method Room Air 06/15/24 10:48 BMI result Body Mass Index 26.9 Const General: comfortable and no acute distress Orientation/consciousness: patient oriented x3 HEENT Head: Yes normocephalic Mouth: Normal oral and palatal mucosa present Eyes EOM: EOMs intact bilaterally Neck Neck: Yes supple Resp Auscultation: clear to auscultation bilaterally Cardio Jugular venous distension: no JVD Rate: regular rate GI Palpation (GI): Soft to palpation Auscultation: normal bowel sounds General: Yes no CVA tenderness Back/Spine/Pelvis Back: no CVA tenderness Skin General skin exam: no rashes or lesions noted Neuro General: patient oriented x3 and moves all extremities Extrem General: Yes no pedal edema Results Reviewed Nephrology Results: Hgb 14.7 g/dl (14.0-18.0) 04/25/24 WBC 9.1 X10*3/uL (4.8-10.8) 04/25/24 Plt Count 230 X10*3/uL (160-400) 04/25/24 Sodium 142 mmol/L (135-145) 04/25/24 Potassium 3.4 mmol/L (3.3-5.1) 04/25/24 Chloride 107 mmol/L (96-108) 04/25/24 Carbon Dioxide 29 mmol/L (22-29) 04/25/24 BUN 17 mg/dL (9-16) H 04/25/24 Creatinine 0.92 mg/dL (0.5-1.4) 04/25/24 Calcium 9.7 mg/dL (8.4-10.2) 04/25/24 Urine Protein Trace mg/dL (Neg-Trace) 04/25/24 Assessment & Plan Assessment & Plan (1) Hypertension: Code(s): I10 - Essential (primary) hypertension Category: Medical Qualifiers: Hypertension type: primary hypertension Qualified Code(s): I10 - Essential (primary) hypertension Plan Wellington has longstanding hypertension as well as vascular disease. He has history of coronary artery disease. He currently has aortic aneurysm and has seen vascular surgery. He should be on a low-sodium diet. I increased his nifedipine to 60 mg daily. He can continue his current dose of metoprolol, lisinopril as well as hydrochlorothiazide. He should be on a low-sodium diet. He should avoid nonsteroidal anti-inflammatories and maintain good hydration. I shall consider doing a 24 hour ambulatory blood pressure monitor along with the aldosterone and renin levels, if his blood pressure continues to be labile in spite of adjusting medications. He should quit smoking. Further management is pending evolving data. Answered all questions. Medications: Changed From nifedipine ER 30 mg PO DAILY 90 tabs 2RF To nifedipine ER 60 mg PO DAILY 90 tabs 2RF Coding Level of Care Code Est Pt Level 4 (95562) Diagnoses Primary hypertension I10 Hypertension type: primary hypertension
[2024-06-15 10:48] VITALS: BP 140/80; PULSE 95; O2SAT 98; BMI 26.9
== END 2024-06-15 11:10 | disposition home or self-care (01) ==
LOC: HO.HKA 10:42
PROVIDERS: Visit Provider Internal Medicine Nephrology
DX: I10 Essential (primary) hypertension (principal)
CPT/HCPCS: 99214

== ENCOUNTER → 2024-06-15 10:42 | Outpatient (BNVA) | payer OTHER, SELFPAY | PROVIDERS: Visit Provider Internal Medicine Nephrology | DX: I10 Essential (primary) hypertension (principal) | CPT/HCPCS: 99212 ==

== ENCOUNTER 2024-07-28 07:35 | Outpatient (REF) | payer OTHER, SELFPAY ==
[2024-07-28 09:25] LABS: Cholesterol 175 mg/dL (<200); HDL Cholesterol 43 mg/dL (>40); LDL Cholesterol Calculated 110 mg/dL (<100); Triglycerides 110 mg/dL (<150)
== END 2024-07-28 07:36 | disposition home or self-care (01) ==
LOC: HO.LAB 07:35
DX: E78.00 Pure hypercholesterolemia, unspecified (principal)
CPT/HCPCS: 36415; 80061

== ENCOUNTER 2024-08-08 08:48 | Outpatient (AMB) | payer OTHER, SELFPAY ==
[2024-08-08 08:56] VITALS: BP 120/80; PULSE 54; TEMP 36.2; O2SAT 99; BMI 26.5
--- NOTE | 2024-08-08 08:56 | MHC.PC.OV ---
Vital Signs 08/08/24 08:56 Height 5 ft 8 in Weight 174 lb 2 oz BMI 26.5 BP 120/80 Blood Pressure Location Lt brachial Position Sitting Pulse 54 Pulse Source Pulse Oximeter Temp 97.1 F Temp Source Temporal Artery Scan Pulse Oximetry (%) 99 Oxygen Delivery Method Room Air Intake Visit Reasons: f/u HTN / HLD Intake Note: Patient is here to follow up on HTN, HLD. Data Manager Required: No Passementerie Worker: Not Required per policy Accompanied by: Self / Same As Patient Allergies No Known Allergies Allergy (Mild, Verified 08/08/24 09:16) N/A Medication List - Last Reconciled 08/08/24 by Tonie Ivey PA-C cyclobenzaprine 5 mg PO BEDTIME hydrochlorothiazide 25 mg PO DAILY lisinopril 40 mg PO DAILY metoprolol succinate ER 100 mg PO BID nifedipine ER 60 mg PO DAILY simvastatin 20 mg PO DAILY Tobacco use date assessed: 08/08/24 Fall risk assessment: No Falls in past year Last assessed Fall Risk: 08/08/24 Dental Screening Dental Screen Date: 03/26/24 HPI f/u HTN / HLD HPI Details 74-year-old male with past medical history of hypertension, hyperlipidemia, tobacco abuse, degenerative disc disease, coronary artery disease, abdominal aortic aneurysm and aortic stenosis last seen 04/2024 coming in for follow up.?In review of the notes, patient was seen by business operations director 05/2024 nifedipine was increased to 60 mg and advised to continue on metoprolol, lisinopril and hydrochlorothiazide.?He was seen by vascular surgery 05/2024 repeat ultrasound in 6 months advised smoking cessation and blood pressure management. Presenting with hypertension and hyperlipidemia management. Managed with multiple medications, including an increase in nifedipine by the business operations director in May. He checks blood pressure daily and all of which have been WNL. LDL cholesterol is 110 mg/dL, above the target. Simvastatin dosage is being increased. Referral to a closer sleep medicine is being arranged due to transportation issues. Patient did not attend appointment due to transportation issues. The patient continues to smoke despite awareness of the condition's risks. [facility] Medical History Hyperlipidemia Hypertension Surgical History History of coronary artery stent placement History of stent insertion of renal artery History of knee surgery Social History Housing: House Alcohol intake: current Alcohol intake frequency: a few times a month Patient Tobacco Use Status: Current everyday Tobacco user Tobacco use type: Cigarette Cigarette Packs Per Day: 1 Cigarettes Per Day: 20 e-Cigarette/Vaping Use: Never Used Second Hand Smoke Exposure: Yes service: No Current occupational status: unemployed Cognitive needs: Yes Hearing needs: No Vision needs: No Questionnaire Thrive Questionnaire Date Thrive assessed: 03/26/24 MORAIMA-7 AMB Questionnaire MORAIMA-7 Date MORAIMA - 7 assessed: 03/26/24 Source: Developed by Drs. Des Crockett, Ninoska King, Bola River and colleagues, with an educational alice from [employer]. Review of Systems Const Denies body aches, Denies chills, Denies fever(s) and Denies poor appetite Eyes Reports no additional complaints ENT Denies dizziness Card Denies chest pain, Denies syncope, Denies irregular heart rhythm, Denies lightheadedness and Denies dyspnea Resp Denies cough and Denies dyspnea GI Denies abdominal pain, Denies nausea and Denies vomiting Reports no additional complaints Musc Reports no additional complaints and Denies abnormal gait Skin/Breast Reports system reviewed and no additional complaints, except as documented Neuro Denies abnormal gait, Denies dizziness and Denies syncope Psych Reports no additional complaints Physical exam (Primary Care) Vital Signs: Last Vital Signs Temp 97.1 F 08/08/24 08:56 Pulse 54 08/08/24 08:56 BP 120/80 08/08/24 08:56 Pulse Ox 99 08/08/24 08:56 Oxygen Delivery Method Room Air 08/08/24 08:56 BMI result Body Mass Index 26.5 Tobacco/Smoking Status: Tobacco use Status Tobacco use date assessed 08/08/24 08/08/24 09:09 Patient Tobacco Use Status Current everyday Tobacco 08/08/24 09:09 Tobacco use type Cigarette 08/08/24 09:09 e-Cigarette/Vaping Use Never Used 08/08/24 09:09 Thrive Assessment: Date of Thrive Assessment Date Thrive assessed 03/26/24 08/08/24 09:09 Const General: cooperative, healthy appearing, comfortable and no acute distress Orientation/consciousness: patient oriented x3 HENMT Head: Yes normocephalic Ears: hearing grossly normal bilaterally General nose exam: Normal external nose present Eyes General: appearance normal, both eyes and all related structures Conjunctivae: conjunctivae normal Neck Neck: Yes full ROM and Yes no lymphadenopathy Resp Effort & Inspection: normal respiratory effort Auscultation: clear to auscultation bilaterally, no crackles, no rales, no rhonchi and no wheezes Cardio Rate: regular rate Rhythm: regular rhythm Skin General skin exam: no rashes or lesions noted Neuro General: patient oriented x3 Gait exam (Neuro): Normal gait present Extrem General: Yes normal to inspection, Yes full ROM and No edema Psych Affect: normal affect Attitude: cooperative Insight: Good insight present (Psych) Judgement: Good judgement present (Psych) Coding Level of Care Code Est Pt Level 3 (93911) Diagnoses Primary hypertension I10 Hypertension type: primary hypertension Abdominal aortic aneurysm (AAA) without rupture, unspecified part I71.40 Abdominal aorta location: unspecified Presence of rupture: without rupture Coronary artery disease I25.10 Mixed hyperlipidemia E78.2 Hyperlipidemia type: mixed hyperlipidemia Obstructive sleep apnea G47.33 Tobacco abuse Z72.0 Degenerative disc disease, lumbar M51.369 Assessment & Plan Assessment & Plan (1) Hypertension: Code(s): I10 - Essential (primary) hypertension Category: Medical Qualifiers: Hypertension type: primary hypertension Qualified Code(s): I10 - Essential (primary) hypertension Plan: Continue on current blood pressure medication. Avoid salt intake and encourage healthy diet and regular exercise. Patient recently had increase in Hydralazine to 60 mg. Continue to follow with nephrology. (2) Abdominal aortic aneurysm: Code(s): I71.40 - Abdominal aortic aneurysm, without rupture, unspecified Category: Medical Qualifiers: Abdominal aorta location: unspecified Presence of rupture: without rupture Qualified Code(s): I71.40 - Abdominal aortic aneurysm, without rupture, unspecified Plan: Recently seen by vascular surgery and advised repeat US in 6 months. (3) Coronary artery disease: Code(s): I25.10 - Atherosclerotic heart disease of [place] coronary artery without angina pectoris Category: Medical Plan: Advised good control of cholesterol, blood pressure and blood sugars. He is not currently on aspirin or antiplatelet therapy. I increase his simvastatin to 40 mg due to elevated LDL and consider switch to higher intensity statin. Agent advised him to follow up with Cardiology as well. (4) Hyperlipidemia: Code(s): E78.5 - Hyperlipidemia, unspecified Category: Medical Qualifiers: Hyperlipidemia type: mixed hyperlipidemia Qualified Code(s): E78.2 - Mixed hyperlipidemia Plan: Avoid foods that are high in cholesterol such as red meat, fried foods, eggs and baked goods. Triglyceride goal of less than 150 and LDL goal of less than 70. Continue on simvastatin 40 (5) Obstructive sleep apnea: Code(s): G47.33 - Obstructive sleep apnea (adult) (pediatric) Category: Medical Plan: Patient has a obstructive sleep apnea states it is difficult to sleep at night unless elevated and is requesting hospital bed which has been sent today. He did not intend to sleep medicine appointment due to transportation issues and referral was placed to check be as this is an easier office for him to reach. (6) Tobacco abuse: Code(s): Z72.0 - Tobacco use Category: Medical Plan: Smoking cigarettes and the use of tobacco can be harmful. We discussed the importance of stopping and options to aid in smoking cessation. Strongly advised patient to avoid the use of cigarettes given his past medical history. He is aware it can worsen condition such as high blood pressure and aortic aneurysm. Declining therapy today (7) Degenerative disc disease, lumbar: Code(s): M51.369 - Other intervertebral disc degeneration, lumbar region without mention of lumbar back pain or lower extremity pain Category: Medical Plan: Patient having low back pain that makes it difficult for him to lay flat in bed. He is requesting a hospital bed which sent to the pharmacy today. Plan The patient's hypertension management includes multiple antihypertensive medications, with an increased dose of nifedipine. Hyperlipidemia management involves increasing simvastatin to 40 mg, with follow-up labs in three months. A referral for sleep apnea management is being arranged closer to home. Smoking cessation is advised due to the risk of worsening the aortic aneurysm. A hospital bed prescription has been sent to improve sleep quality. This note was constructed using voice recognition software. While every effort has been made to ensure accuracy and recruiting operations consultant, still areas may have been included sometimes these areas may affect the content or meeting of the given symptoms. Total time spent caring for the patient today was twenty minutes. This includes time spent before the visit reviewing the chart, time spent during the visit, and time spent after the visit and documentation. Orders: Orders Lipid Panel 3 Months E78.00 - Pure hypercholesterolemia, unspecified Referrals Sleep Medicine Referral G47.33 - Obstructive sleep apnea (adult) (pediatric) Medications: New simvastatin 40 mg PO BEDTIME 30 tabs 0RF [hospital bed] As directed 1 ea 0RF G47.33 - Obstructive sleep apnea (adult) (pediatric), M51.369 - Other intervertebral disc degeneration, lumbar region without mention of lumbar back pain or lower extremity pain [hospital bed] As directed 1 ea 0RF G47.33 - Obstructive sleep apnea (adult) (pediatric), M51.369 - Other intervertebral disc degeneration, lumbar region without mention of lumbar back pain or lower extremity pain Refilled lisinopril 40 mg PO DAILY 90 tabs 0RF I10 - Essential (primary) hypertension cyclobenzaprine 5 mg PO BEDTIME 30 tabs 0RF Discontinued simvastatin Discontinued Reason: Patient no longer taking 20 mg PO DAILY 90 tabs 0RF E78.2 - Mixed hyperlipidemia
== END 2024-08-08 09:43 | disposition home or self-care (01) ==
LOC: HO.HMCH 08:49
DX: I10 Essential (primary) hypertension (principal); I71.40 Abdominal aortic aneurysm, without rupture, unspecified; I25.10 Atherosclerotic heart disease of native coronary artery without angina pectoris; E78.2 Mixed hyperlipidemia; G47.33 Obstructive sleep apnea (adult) (pediatric); Z72.0 Tobacco use; M51.369 Other intervertebral disc degeneration, lumbar region without mention of lumbar back pain or lower extremity pain

== ENCOUNTER → 2024-08-08 08:48 | Outpatient (BNVA) | payer OTHER, SELFPAY | DX: I10 Essential (primary) hypertension (principal); I25.10 Atherosclerotic heart disease of native coronary artery without angina pectoris; I71.40 Abdominal aortic aneurysm, without rupture, unspecified; E78.2 Mixed hyperlipidemia; G47.33 Obstructive sleep apnea (adult) (pediatric); M51.369 Other intervertebral disc degeneration, lumbar region without mention of lumbar back pain or lower extremity pain; F17.210 Nicotine dependence, cigarettes, uncomplicated; Z79.899 Other long term (current) drug therapy | CPT/HCPCS: 99212 ==

== ENCOUNTER 2024-10-10 11:36 | Outpatient (AMB) | payer OTHER, SELFPAY ==
--- NOTE | 2024-10-10 11:43 | HO.NEPHOV_ITS ---
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 He is 74 years of age who has a smoker and has history of coronary artery disease needing PCI and stenting. He denied any history of carotid stenosis, CVA, CHF, PAD or known ELIZABETH. He does not have any history of hypokalemia, hypercalcemia, uncontrolled thyroid disorders, sleep apnea. He does not keep up with a low-sodium diet. He has no pedal edema, proteinuria or renal dysfunction. He denies any chest pain, palpitation, paroxysmal nocturnal dyspnea, orthopnea, orthostatic symptoms. He claims to be compliant with his medications. His blood pressure is at goal now. Doppler of the renal arteries incidentally showed 4 cm abdominal aortic aneurysm ( sees Dr Alexandre as per patient). [facility] Medical History Hyperlipidemia Hypertension Surgical History History of coronary artery stent placement History of stent insertion of renal artery History of knee surgery Social History Housing: House Alcohol intake: current Alcohol intake frequency: a few times a month Patient Tobacco Use Status: Current everyday Tobacco user Tobacco use type: Cigarette Cigarette Packs Per Day: 1 Cigarettes Per Day: 20 e-Cigarette/Vaping Use: Never Used Second Hand Smoke Exposure: Yes service: No Current occupational status: unemployed Cognitive needs: Yes Hearing needs: No Vision needs: No Review of Systems Const All systems reviewed & are unremarkable except as noted in HPI and below Physical Exam Vital Signs: Last Vital Signs Pulse 75 10/10/24 11:47 BP 112/80 10/10/24 11:47 Pulse Ox 97 10/10/24 11:47 Oxygen Delivery Method Room Air 10/10/24 11:47 BMI result Body Mass Index 26.5 Const General: comfortable and no acute distress Orientation/consciousness: patient oriented x3 HEENT Head: Yes normocephalic Mouth: Normal oral and palatal mucosa present Eyes EOM: EOMs intact bilaterally Neck Neck: Yes supple Resp Auscultation: clear to auscultation bilaterally Cardio Jugular venous distension: no JVD Rate: regular rate GI Palpation (GI): Soft to palpation Auscultation: normal bowel sounds General: Yes no CVA tenderness Back/Spine/Pelvis Back: no CVA tenderness Skin General skin exam: no rashes or lesions noted Neuro General: patient oriented x3 and moves all extremities Extrem General: Yes no pedal edema Results Reviewed Nephrology Results: Renal US 04/24/24 Assessment & Plan Assessment & Plan (1) Hypertension: Code(s): I10 - Essential (primary) hypertension Category: Medical Qualifiers: Hypertension type: primary hypertension Qualified Code(s): I10 - Essential (primary) hypertension Plan Wellington has longstanding hypertension as well as vascular disease. He has history of coronary artery disease. He currently has aortic aneurysm and has seen vascular surgery. He should be on a low-sodium diet. He can continue his current dose of metoprolol, lisinopril , nifedipine as well as hydrochlorothiazide. He should be on a low-sodium diet. He should avoid nonsteroidal anti-inflammatories and maintain good hydration. I shall consider doing a 24 hour ambulatory blood pressure monitor along with the aldosterone and renin levels, if his blood pressure continues to be labile in spite of adjusting medications. He should quit smoking. Further management is pending evolving data. Answered all questions. Orders: Orders Creatinine 4 Months I10 - Essential (primary) hypertension Blood Urea Nitrogen 4 Months I10 - Essential (primary) hypertension Electrolytes 4 Months I10 - Essential (primary) hypertension Protein Creatinine Ratio, Ur 4 Months I10 - Essential (primary) hypertension Coding Level of Care Code Est Pt Level 4 (25679) Diagnoses Primary hypertension I10 Hypertension type: primary hypertension
[2024-10-10 11:47] VITALS: BP 112/80; PULSE 75; O2SAT 97; BMI 26.5
--- OUTSIDE RECORDS SUMMARY | 2024-10-10 12:56 | XMS_ITS | Patient Health Record ---
Author Organization [facility] Address [address] [place] [address] Care Team Providers Care Intermodal Dispatcher Name Role Phone NONE, NONE Primary Care Provider [place] [phone] Reason For Referral No Information Plan Of Treatment No Information
== END 2024-10-10 12:11 | disposition home or self-care (01) ==
LOC: HO.HKA 11:36
PROVIDERS: Visit Provider Internal Medicine Nephrology
DX: I10 Essential (primary) hypertension (principal)
CPT/HCPCS: 99214

== ENCOUNTER → 2024-10-10 11:36 | Outpatient (BNVA) | payer OTHER, SELFPAY | PROVIDERS: Visit Provider Internal Medicine Nephrology | DX: I10 Essential (primary) hypertension (principal) | CPT/HCPCS: 99212 ==

== ENCOUNTER 2024-11-20 08:05 | Outpatient (REF) | payer OTHER, SELFPAY ==
--- NOTE | ~2024-11-20 | US_ITS ---
CLINICAL HISTORY: I71.40 - Abdominal aortic aneurysm, without rupture, unspecified Ultrasound abdominal aorta Comparison: None provided Findings: 4.5 cm infrarenal abdominal aortic aneurysm. Moderate atherosclerotic irregularity noted. Mild bilateral common iliac artery dilation. Both measure 1.3 cm in diameter. Impression: 4.5 cm infrarenal abdominal aortic aneurysm Bilateral common iliac artery dilation This document has been electronically signed by: Rajesh Valenzuela MD on 11/20/2024 20:36:03
[2024-11-20 09:17] LABS: Cholesterol 152 mg/dL (<200); HDL Cholesterol 31 mg/dL (>40); Triglycerides 82 mg/dL (<150)
== END 2024-11-20 08:06 | disposition home or self-care (01) ==
LOC: HO.US 08:05
PROVIDERS: Visit Provider Surgery Vascular Surgery
DX: I71.40 Abdominal aortic aneurysm, without rupture, unspecified (principal); E78.00 Pure hypercholesterolemia, unspecified
CPT/HCPCS: 36415; 76706; 80061

== ENCOUNTER → 2024-11-20 08:24 | Outpatient (BNV) | payer OTHER, SELFPAY | PROVIDERS: Visit Provider Radiology Diagnostic Radiology | DX: I71.43 Infrarenal abdominal aortic aneurysm, without rupture (principal); I72.3 Aneurysm of iliac artery | CPT/HCPCS: 76706 ==

== ENCOUNTER 2024-12-27 12:49 | Outpatient (AMB) | payer OTHER, SELFPAY ==
--- NOTE | 2024-12-27 12:58 | A.OFFVIS_ITS ---
Vital Signs 12/27/24 12:59 Height 5 ft 8 in Weight 174 lb BMI 26.5 Intake Visit Reasons: 6m follow up AAA 11/20/24 Intake Note: 6 mo follow up AAA 11/20/24, no complaints Salesperson Driver Required: No Accompanied by: Self / Same As Patient Allergies No Known Allergies Allergy (Mild, Verified 12/27/24 13:00) N/A HPI HPI 6m follow up AAA 11/20/24: Details: Very pleasant 74-year-old gentleman presents for follow-up regarding his aortic aneurysm. He has had no significant interval changes. Continues to smoke about a pack a day. Remains quite active and was just out raking his leaves this morning. Now for routine surveillance follow-up. [facility] Medical History Hyperlipidemia Hypertension Surgical History History of coronary artery stent placement History of stent insertion of renal artery History of knee surgery Social History Housing: House Alcohol intake: current Alcohol intake frequency: a few times a month Patient Tobacco Use Status: Current everyday Tobacco user Tobacco use type: Cigarette Cigarette Packs Per Day: 1 Cigarettes Per Day: 20 e-Cigarette/Vaping Use: Never Used Second Hand Smoke Exposure: Yes service: No Current occupational status: unemployed Cognitive needs: Yes Hearing needs: No Vision needs: No Review of Systems Const All systems reviewed & are unremarkable except as noted in HPI and below Reports no additional complaints ENT Reports Normal hearing present Card Denies chest pain, Denies chest pain at rest, Denies chest pain with activity and Denies pedal edema Resp Denies cough GI Denies abdominal pain Musc Denies abnormal gait, Denies muscle cramps and Denies radiating pain into limb Skin/Breast Denies skin ulcer and Denies wounds Neuro Reports Normal hearing present and Denies abnormal gait Psych Reports no additional complaints Physical Exam Vital Signs: BMI result Body Mass Index 26.5 Const General: cooperative, healthy appearing and comfortable Orientation/consciousness: oriented to person, oriented to place and oriented to time HEENT Head: Yes normal to inspection Neck Neck: Yes normal visual inspection Carotids: no bruits Chest Chest palpation & inspection: normal inspection of the chest Resp Effort & Inspection: normal respiratory effort and able to speak in complete sentences Auscultation: clear to auscultation bilaterally, no crackles, no rales, no rhonchi and no wheezes Cardio Rate: regular rate Rhythm: regular rhythm Heart sounds: S1 normal heart sound present and S2 normal heart sound present Bruits: no carotid bruits Peripheral pulses: Peripheral pulses 2+ throughout GI Inspection: Yes normal to inspection Skin Wounds: no wounds Hair: normal Neuro General: oriented to person, oriented to place and oriented to time Cranial nerves: Yes CN's II-XII intact bilaterally and Yes Normal hearing present Cognition (Neuro): normal cognition Motor exam (neuro): 5/5 motor strength present throughout Extrem Other: venous exam: No significant superficial varicosities or spider telan giectasias, minimal edema General: No clubbing, No cyanosis and No edema Psych Appearance: grossly normal Mental Status: mental status grossly normal Speech and movement: Normal speech and movement present Results Reviewed Results Reviewed: Ultrasound dated 11/20/2024 demonstrates a 4.5 cm aortic aneurysm Assessment & Plan Assessment & Plan (1) Abdominal aortic aneurysm: Code(s): I71.40 - Abdominal aortic aneurysm, without rupture, unspecified Category: Medical Qualifiers: Abdominal aorta location: unspecified Presence of rupture: without rupture Qualified Code(s): I71.40 - Abdominal aortic aneurysm, without rupture, unspecified Plan: In short patient has radiologic evidence of a AAA on ultrasound of 4.5 cm. We have discussed the pathophysiology of aortic aneurysms and the risk of ruptures. We have discussed rupture risk based on size. In addition we have discussed conservative measures and risk factor modification for prevention of increase in size of the aneurysm. the patient is scheduled for surveillance follow-up in approximately 6 months. Thank you for allowing us to participate in the care of this patient Coding Level of Care Code Est Pt Level 4 (76021) Diagnoses Abdominal aortic aneurysm (AAA) without rupture, unspecified part I71.40 Abdominal aorta location: unspecified Presence of rupture: without rupture
[2024-12-27 12:59] VITALS: BMI 26.5
== END 2024-12-27 13:20 | disposition home or self-care (01) ==
LOC: HO.HVS 12:50
PROVIDERS: Visit Provider Surgery Vascular Surgery
DX: I71.40 Abdominal aortic aneurysm, without rupture, unspecified (principal)
CPT/HCPCS: 99214

== ENCOUNTER → 2024-12-27 12:49 | Outpatient (BNVA) | payer OTHER, SELFPAY | PROVIDERS: Visit Provider Surgery Vascular Surgery | DX: I71.40 Abdominal aortic aneurysm, without rupture, unspecified (principal); F17.200 Nicotine dependence, unspecified, uncomplicated | CPT/HCPCS: 99212 ==

== ENCOUNTER 2025-01-16 06:41 | Outpatient (REF) | payer OTHER, SELFPAY ==
--- OUTSIDE RECORDS SUMMARY | 2025-01-16 06:44 | XMS_ITS | Patient Health Record ---
Author Organization [facility] Address [address] [place] [address] Care Team Providers Care Roller Skater Name Role Phone NONE, NONE Primary Care Provider [place] [phone] Reason For Referral No Information Plan Of Treatment No Information
[2025-01-16 07:41] LABS: Appearance Urine Clear; Glucose Urine UA Negative (Negative); PH 6.0 (5.0-9.0); Specific Gravity - Urine 1.020 (1.005-1.025); UMIC TRIGGER UACC YES
[2025-01-16 07:59] LABS: Anion Gap 13 (12-20); Blood Urea Nitrogen 17 mg/dL (9-16); Carbon Dioxide 27 mmol/L (22-29); Chloride 106 mmol/L (96-108); Cholesterol 139 mg/dL (<200); Estimated Glomerular Filt Rate > 60; HDL Cholesterol 38 mg/dL (>40); Potassium 3.6 mmol/L (3.3-5.1); Sodium 142 mmol/L (135-145); Triglycerides 74 mg/dL (<150)
[2025-01-16 08:36] LABS: Protein/Creatinine Ratio, Ur 0.18 (<0.2); Total Protein Urine Random 27 mg/dL (<12)
== END 2025-01-16 06:42 | disposition home or self-care (01) ==
LOC: HO.LAB 06:41
PROVIDERS: Visit Provider Internal Medicine Nephrology
DX: I10 Essential (primary) hypertension (principal); E78.00 Pure hypercholesterolemia, unspecified; R35.89 Other polyuria
CPT/HCPCS: 36415; 80051; 80061; 81001; 82565; 82570; 84156; 84520

== ENCOUNTER 2025-01-23 14:36 | Outpatient (AMB) | payer OTHER, SELFPAY ==
--- NOTE | 2025-01-23 14:49 | HO.NEPHOV_ITS ---
Vital Signs 01/23/25 14:52 Height 5 ft 8 in Weight 174 lb 2 oz BMI 26.5 BP 140/76 H Blood Pressure Location Rt brachial Position Sitting Pulse 67 Pulse Source Pulse Oximeter Pulse Oximetry (%) 97 Oxygen Delivery Method Room Air Intake Visit Reasons: 4mon f/u w/l[facility] Manager Required: No Accompanied by: Self / Same As Patient Allergies No Known Allergies Allergy (Mild, Verified 01/23/25 14:51) N/A HPI Comments Details: Wellington was seen for F/U of hypertension. He is 74 years of age who has a smoker and has history of coronary artery disease needing PCI and stenting. He denied any history of carotid stenosis, CVA, CHF, PAD or known ELIZABETH. He does not have any history of hypokalemia, hypercalcemia, uncontrolled thyroid disorders, sleep apnea. He does not keep up with a low-sodium diet. He has no pedal edema, proteinuria or renal dysfunction. He denies any chest pain, palpitation, paroxysmal nocturnal dyspnea, orthopnea, orthostatic symptoms. He claims to be compliant with his medications. His blood pressure is at goal now. Doppler of the renal arteries incidentally showed 4 cm abdominal aortic aneurysm ( sees Dr Alexandre as per patient). [facility] Medical History Hyperlipidemia Hypertension Surgical History History of coronary artery stent placement History of stent insertion of renal artery History of knee surgery Social History Housing: House Alcohol intake: current Alcohol intake frequency: a few times a month Patient Tobacco Use Status: Current everyday Tobacco user Tobacco use type: Cigarette Cigarette Packs Per Day: 1 Cigarettes Per Day: 20 e-Cigarette/Vaping Use: Never Used Second Hand Smoke Exposure: Yes service: No Current occupational status: unemployed Cognitive needs: Yes Hearing needs: No Vision needs: No Review of Systems Const All systems reviewed & are unremarkable except as noted in HPI and below Physical Exam Const General: comfortable and no acute distress Orientation/consciousness: patient oriented x3 HEENT Head: Yes normocephalic Mouth: Normal oral and palatal mucosa present Eyes EOM: EOMs intact bilaterally Neck Neck: Yes supple Resp Auscultation: clear to auscultation bilaterally Cardio Jugular venous distension: no JVD Rate: regular rate GI Palpation (GI): Soft to palpation Auscultation: normal bowel sounds General: Yes no CVA tenderness Back/Spine/Pelvis Back: no CVA tenderness Skin General skin exam: no rashes or lesions noted Neuro General: patient oriented x3 and moves all extremities Extrem General: Yes no pedal edema Results Reviewed Nephrology Results: Sodium, (135-145) 142 mmol/L 01/16/25 Potassium, (3.3-5.1) 3.6 mmol/L 01/16/25 Chloride, (96-108) 106 mmol/L 01/16/25 Carbon Dioxide, (22-29) 27 mmol/L 01/16/25 BUN, (9-16) 17 mg/dL H 01/16/25 Creatinine, (0.5-1.4) 1.10 mg/dL 01/16/25 Urine Protein, (Neg-Trace) 30 (1+) mg/dL H 01/16/25 Urine Creatinine 148.70 mg/dL 01/16/25 Protein/Creatinin Ratio, (<0.2) 0.18 01/16/25 Renal US 04/24/24 Assessment & Plan Assessment & Plan (1) Hypertension: Code(s): I10 - Essential (primary) hypertension Category: Medical Qualifiers: Hypertension type: primary hypertension Qualified Code(s): I10 - Essential (primary) hypertension (2) CKD stage 3a, GFR 45-59 ml/min: Code(s): N18.31 - Chronic kidney disease, stage 3a Category: Medical Plan Wellington has longstanding hypertension as well as vascular disease. He has history of coronary artery disease. He currently has aortic aneurysm and has seen vascular surgery. He should be on a low-sodium diet. He can continue his current dose of metoprolol, lisinopril , nifedipine as well as hydrochlorothiaz milton. He should be on a low-sodium diet. He should avoid nonsteroidal anti- inflammatories and maintain good hydration. He should quit smoking. Answered all questions. Orders: Orders Electrolytes 6 Months I10 - Essential (primary) hypertension, N18.31 - Chronic kidney disease, stage 3a Blood Urea Nitrogen 6 Months I10 - Essential (primary) hypertension, N18.31 - Chronic kidney disease, stage 3a Creatinine 6 Months I10 - Essential (primary) hypertension, N18.31 - Chronic kidney disease, stage 3a Coding Level of Care Code Est Pt Level 4 (98937) Diagnoses Primary hypertension I10 Hypertension type: primary hypertension CKD stage 3a, GFR 45-59 ml/min N18.31
[2025-01-23 14:52] VITALS: BP 140/76; PULSE 67; O2SAT 97; BMI 26.5
--- OUTSIDE RECORDS SUMMARY | 2025-01-23 17:31 | XMS_ITS | Patient Health Record ---
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
== END 2025-01-23 15:02 | disposition home or self-care (01) ==
LOC: HO.HKA 14:37
PROVIDERS: Visit Provider Internal Medicine Nephrology
DX: I10 Essential (primary) hypertension (principal); N18.31 Chronic kidney disease, stage 3a
CPT/HCPCS: 99214

== ENCOUNTER → 2025-01-23 14:36 | Outpatient (BNVA) | payer OTHER, SELFPAY | PROVIDERS: Visit Provider Internal Medicine Nephrology | DX: I12.9 Hypertensive chronic kidney disease with stage 1 through stage 4 chronic kidney disease, or unspecified chronic kidney disease (principal); N18.31 Chronic kidney disease, stage 3a; F17.210 Nicotine dependence, cigarettes, uncomplicated; Z86.79 Personal history of other diseases of the circulatory system; Z71.3 Dietary counseling and surveillance; Z79.899 Other long term (current) drug therapy; Z71.6 Tobacco abuse counseling | CPT/HCPCS: 99212 ==